=== PATIENT | male | born 1945 | race Caucasian/White ===

== ENCOUNTER 2016-08-02 06:12 | Inpatient (IN) | payer MEDICARE, BC ==
--- NOTE | 2016-07-24 02:34 | HP ---
HISTORY AND PHYSICAL: DATE OF ADMISSION/SURGERY: 08/02/16 PROCEDURE: Right total knee replacement. CHIEF COMPLAINT: Right knee pain. HISTORY OF PRESENT ILLNESS: The patient is a very pleasant 70-year-old male, who has a longstanding history of severe osteoarthritis of the right knee. He presents today for a history and physical examination prior to undergoing a right total knee replacement. In brief, the patient has failed conservative measures such as injections and NSAIDs and feels that this is disrupting his quality of life. He has elected to undergo right total knee replacement. PAST MEDICAL HISTORY: 1. Bladder cancer. 2. Prostate cancer. 3. Osteoarthritis, generalized. 4. Obstructive sleep apnea. 5. Diabetes type 2. 6. Hypertension. 7. Elevated cholesterol. 8. GERD. 9. Nephrolithiasis. PAST SURGICAL HISTORY: 1. Bladder surgery x4. 2. Prostatectomy. 3. Open right knee meniscectomy. 4. Tonsillectomy. 5. Appendectomy. MEDICATIONS: 1. Aspirin 81 mg 1 tablet by mouth daily. 2. Multivitamin 1 tablet daily. 3. Aleve 220 mg 2 tablets by mouth twice daily as needed. 4. Omeprazole 20 mg 1 tablet by mouth. 5. Lotrel 10/40 mg. 6. Simvastatin 40 mg 1 tablet by mouth q.h.s. 7. Metformin 100 mg 1 tablet by mouth twice daily. 8. Atenolol/chlorthalidone 100/25 mg 1 tablet by mouth daily. 9. Tradjenta 5 mg 1 tablet by mouth daily. ALLERGIES: No known drug allergies. FAMILY MEDICAL HISTORY: Positive for heart trouble, diabetes and cancer. SOCIAL HISTORY: The patient is and resides in [place]. The patient is a former smoker, stopped approximately 30 years ago. No alcohol use. REVIEW OF SYSTEMS: General: Negative for fevers, chills, or night sweats. No difficulty with anesthesia. HEENT: Negative for headache, lightheadedness, or syncopal episodes. Integument: Negative for abrasions, lesions, or open wounds. Cardiothoracic: Negative for chest pain, palpitations. Positive for hypertension, positive for minimal bilateral edema. Pulmonary: Negative for shortness of breath with exertion, chronic cough. Positive for COPD. GI: Negative for nausea, vomiting, constipation, diarrhea. Positive for GERD. : Negative for nocturia, urinary frequency or urgency. No history of UTIs. Positive incontinence after prostate surgery. Musculoskeletal: Positive for intermittent back pain, positive for bilateral knee pain. Neuro: Positive for carpal tunnel, paresthesias of the left hand. No seizure, stroke, or epilepsy. Endocrine: Positive for diabetes. Negative for thyroid disease. Hematologic : Negative for easy bruising or anemia. No history of DVT or PE. Infectious Disease: Negative for MRSA, hepatitis C or HIV. PHYSICAL EXAMINATION GENERAL: Well appearing, in no acute distress. Alert and oriented gentleman appearing stated age. VITAL SIGNS: Height 71 inches, weight 300 pounds. Pulse 82, blood pressure 158 /79, temperature 97.4. BMI 41.8. HEENT: Normocephalic, atraumatic. EOMI. NECK: Supple. PULMONARY: Clear to auscultation bilaterally. No crackles, rhonchi, or wheezes. CARDIOVASCULAR: Regular rate and rhythm. No murmurs, gallops, or rubs. Mild edema, bilateral lower extremities. ABDOMEN: Soft, nontender, and nondistended. Normoactive bowel sounds. Obese. NEUROLOGIC: Alert and oriented x3. Cranial nerves grossly intact. Sensation intact to light touch in bilateral lower extremities. MUSCULOSKELETAL: No knee effusion on the right knee. Dorsalis pedis pulses 2+ bilaterally. Right posterior tibial pulse 1+. Negative Robe's sign bilaterally. Range of motion of right knee 0-120 degrees. DIAGNOSTIC STUDIES: Last x-rays up to date, taken 05/06/16. IMPRESSION: The patient is a very pleasant 70-year-old gentleman, who has elected to undergo a right total knee replacement. He has not had previous use of narcotics. Therefore, his medications were not prescribed for him. The procedure was reviewed in depth and the patient voiced full understanding. He signed the risks and complications, surgical sheet. He will be seen at [facility]'s today for further testing. He was cleared by his primary care doctor, Dr. Tilley , on 07/13/16. RUI CARRION [id number]/[facility] #: [id number] MTDD
[~2016-08-02 06:12] MED LIST: Buffered Lidocaine 1% SYRIN* 3 ML/SYR SYRINGE INTRADERM ONE; Dexamethasone IV* 4 MG/ML 1 ML (4 MG) IV SLOW PU ONE; Dexamethasone IV* 4 MG/ML 1 ML (4 MG) ONE; Famotidine IV* 10 MG/ML 2 ML (20 mg) IV ONE; Famotidine IV* 10 MG/ML 2 ML (20 mg) ONE
[2016-08-02] MEDS ORDERED: ceFAZolin 2 GM PREMIX(*) 2 GM/50 ML BAG IVPB ONE (06:13)
[2016-08-02] MEDS ORDERED: Morphine PF AMP (0.5MG/ML)* 5 MG/10 ML AMP ONE (06:49)
[2016-08-02] MEDS ORDERED: HYDROmorphone* 1 MG/ML 1 ML SYR ONE ×3 (06:49→09:26)
[2016-08-02] MEDS ORDERED: fentaNYL* 50 MCG/ML 2 ML VIAL (100 MCG VIAL) ONE ×3 (06:49→09:41)
[2016-08-02] MEDS ORDERED: Midazolam* 1 MG/ML 5 ML VIAL (5 MG) ONE (06:49)
[2016-08-02] MEDS ORDERED: Dexmedetomidine* 200 MCG/2 ML 2 ML VIAL ONE (07:03)
[2016-08-02] MEDS ORDERED: Bupivacaine 0.5% SDV PF* 30 ML VIAL ONE (07:04)
[2016-08-02] MEDS ORDERED: Propofol* 10 MG/ML 20 ML BTL IV PUSH ONE ×2 (07:11→09:04)
[2016-08-02] MEDS ORDERED: DiMENhydriNATE IV* 50 MG/ML VIAL IV PUSH PRN ×2 (07:16→09:16)
[2016-08-02] MEDS ORDERED: Ondansetron INJ* 2 MG/ML VIAL IV PRN ×2 (07:16→09:16)
[2016-08-02] MEDS ORDERED: PROCHLORPERAZINE INJ 5 MG/ML 2 ML VIAL IV PRN ×2 (07:16→09:16)
[2016-08-02] MEDS ORDERED: fentaNYL* 50 MCG/ML 2 ML VIAL (100 MCG VIAL) IV PRN (07:16)
[2016-08-02] MEDS ORDERED: Nalbuphine* 20 MG/ML 1 ML VIAL IV PRN (09:16)
[2016-08-02] MEDS ORDERED: diPHENhydraMINE IV* 50 MG/ML 1 ml VIAL (BENADRYL) IV PRN (09:16)
[2016-08-02] MEDS ORDERED: Naloxone* 0.4 MG/ML 1 ML VIAL IV PRN (09:16)
[2016-08-02] MEDS ORDERED: oxyCODONE/Acetamin 5/325 MG* TAB PO PRN (09:16)
[2016-08-02] MEDS ORDERED: LACTULOSE* 30 ML UDC PO PRN (10:23)
[2016-08-02] MEDS ORDERED: Polyethylene Glycol 3350* 17 GM PACKET PO PRN (10:23)
[2016-08-02] MEDS ORDERED: Bisacodyl SUPP* 10 MG SUPP PR PRN (10:23)
[2016-08-02] MEDS ORDERED: Dextrose 50% Syringe 50 ML* 25 GM/50 ML SYRINGE IV PUSH PRN (11:12)
--- NOTE | 2016-08-02 11:26 | RAD ---
HISTORY: Status post right knee arthroplasty COMPARISONS: None VIEWS: 2, Frontal and lateral views of the right knee FINDINGS: BONE DENSITY: Normal. BONES: The patient is status post right knee arthroplasty. There is no hardware failure or osteolysis. JOINTS: The patient is status post right knee arthroplasty ALIGNMENT: There is no dislocation. SOFT TISSUES: There is post surgical change to the soft tissue OTHER FINDINGS: None. IMPRESSION: STATUS POST RIGHT KNEE ARTHROPLASTY
[2016-08-02] MEDS: D5W 1/2 NS 1000 ML BAG* 1,000 ML IV SCH ×2 (12:48→23:01)
[2016-08-02] MEDS: Insulin LISPRO* 1 UNITS UNIT SUBCUT SCH ×2 (13:40→17:31)
--- NOTE | 2016-08-02 15:37 | CONS ---
CONSULTATION REPORT: DATE OF CONSULT: 08/02/16 REQUESTING PHYSICIAN FOR CONSULT: Dr. Sampson. MY ATTENDING PHYSICIAN WHILE IN THE HOSPITAL: Dr. Leesa Schwab (report dictated by Que Tadeo NP) REASON FOR MEDICAL CONSULT: Medical management of comorbid medical conditions. HISTORY OF PRESENT ILLNESS: I refer you to Dr. Sampson's H and P for further details. In short, Mr. Hernadez is a 70-year-old male patient that comes to the orthopedic services today after he was being followed closely in the outpatient setting for severe osteoarthritis of his right knee failing conservative therapy, it got to the point where the right total knee options were explored and the patient elected to proceed with a right total knee replacement. He underwent the procedure today. He carries a history of bladder cancer, prostate cancer, MIRI, diabetes, hypertension, hyperlipidemia, GERD, and history of bladder calcifications, and because of his medical problems, we were asked to evaluate in consult. The patient was evaluated in the postoperative setting. He does state that he feels a little drowsy. He says he feels a little lightheaded. He denies feeling though likely he is going to pass out. Denies any chest pain or shortness of breath. He denies having any abdominal pain. States he does not feel nauseous. He says he has no feeling in his lower extremities at this point. He did receive again a spinal. He says otherwise, he feels well and he says he is not having any pain, but because of his medical complexity, we were asked to evaluate in consult. PAST MEDICAL HISTORY: Significant for: 1. Bladder cancer. 2. Prostate cancer. 3. Osteoarthritis. 4. MIRI. 5. Diabetes. 6. Hypertension. 7. Hyperlipidemia. 8. GERD. 9. Bladder calcifications. PAST SURGICAL HISTORY: 1. He has had bladder surgeries, several. 2. He has had a prostatectomy. 3. Right knee arthroscopy. 4. Tonsillectomy. 5. Appendectomy. MEDICATIONS: Home meds according to the preoperative list include: 1. Naproxen 220 mg p.o. daily. 2. Multivitamin 1 tablet daily. 3. Aspirin 81 mg daily. 4. Lotrel 1 capsule p.o. q.a.m. 5. Glyburide/metformin 1 tablet p.o. b.i.d. 6. Atenolol/chlorthalidone 1 tablet p.o. q.a.m. 7. Simvastatin 40 mg daily. 8. Omeprazole 20 mg daily. 9. Tradjenta 5 mg p.o. daily. ALLERGIES TO MEDICATIONS: Include no known drug allergies. FAMILY HISTORY: His mother had a history of kidney disease. Father had a history of hypertension. Both are . SOCIAL HISTORY: He is a former smoker, he quit well over 30 years ago. He does not drink alcohol. Surrogate decision maker is his . He does have children. REVIEW OF SYSTEMS: There is no documented fever. He denied having any significant weight change. There was no double vision. There is no ear discharge. He denies any having any rhinorrhea. There is no sore throat, no thyroid enlargement. Denies having any chest pain. There is no orthopnea, no nocturnal dyspnea. There is no abdominal pain. No nausea, no vomiting. No dysuria, no frequency. No seizure, no loss of consciousness. No pruritus and no skin ulceration. Review of 14 systems completed, all others negative. PHYSICAL EXAM: Reveals vital signs of blood pressure 112/60, pulse 67, respirations 20, O2 sat 95% on 4 L, and temperature 96.8. General: At this time, Mr. Hernadez is a 70-year-old male patient. He is morbidly obese. He is sitting in the PACU bed, he does not appear to be in any acute distress. HEENT : Head is atraumatic and normocephalic. Eyes: EOMs intact, sclerae anicteric , not pale. Throat: Oral mucosa appears to be moist. No oropharyngeal erythema. Neck: Supple. Heart sounds S1 and S2. Regular rate and rhythm. No murmurs, rubs, or gallops. Lungs: Clear to auscultation bilaterally. No wheezes, rales, or rhonchi. Abdomen: Soft, flat, and nontender. Bowel sounds hypoactive. Extremities: Distal CSM checks were intact at bilateral lower extremities. There was no peripheral edema noted. He cannot move the lower extremities at this point. Upper extremities, he had 5/5 strength. Neurologically, he is awake, alert, and oriented x3. He is a little drowsy, but his speech is clear. He had no gross focal deficits. His tongue is midline. His skin is intact with the exception in the right knee, he does have an incision which is covered with an Alexander dressing and is clean, dry, and intact. DIAGNOSTIC STUDIES/LAB DATA: These are preop labs, revealed INR of 0.90, PTT of 25. His calcium was 9.6, albumin 4.2. AST 16, ALT 19. Sodium 135, potassium 4.4, chloride of 97, glucose 156, creatinine of 1.28. Urine obtained preop was negative. WBC of 8.3, RBC of 5.37, hemoglobin 11.3, hematocrit 36, platelet count 315. Hemoglobin A1c was 6.7. Preop chest x-ray showed no active cardiopulmonary disease. EKG showed a normal sinus rhythm with a PAC. He had a rate of 75. No ST elevation or T-wave inversions. Old medical records were reviewed. ASSESSMENT AND PLAN: Mr. Hernadez is a 70-year-old male patient coming in to the orthopedic services today for an elective total knee replacement. The hospitalist service was asked to evaluate in consult to help manage his medical problems. Our recommendations at this point are: 1. Status post right total knee replacement. I will defer the management to Dr. Sampson and his team. 2. History of bladder cancer and prostate cancer. Not active issues currently. Can follow with his primary. 3. Osteoarthritis. Again, he can follow with his primary. 4. Obstructive sleep apnea. I would recommend 24-hour continuous pulse ox monitoring postoperatively and then continue with CPAP. 5. Diabetes. He will be on a lispro sliding scale. 6. Hypertension. We will hold his antihypertensives for the time being with the exception of his beta adilene. 7. Hyperlipidemia. I will continue his statin therapy. 8. Gastroesophageal reflux disease. Continue PPI therapy. 9. DVT prophylaxis. Per the primary team. 10. Code status. Full code. 11. Fluids, electrolytes, and nutrition. He can have a consistent carb diet. TIME SPENT: On the consult was approximately 60 minutes, greater than half the time was spent [id number] with the patient obtaining my history and physical; the other half the time was spent going over the plan of care with the patient and implementing the plan of care. I did discuss the plan of care with my attending, Dr. Schwab; she is in agreement. QUE TADEO NP CC: Dr. Sampson; Dr. Tilley * [id number]/[facility] #: [id number] [facility] SYSTEMByron
[2016-08-02] MEDS: ceFAZolin 1 GM in Dextrose (*) 1 GM/50 ML BAG IVPB SCH (16:04)
[2016-08-02] MEDS ORDERED: Warfarin TAB(*) 10 MG PO ONE (17:00)
[2016-08-02] MEDS: Atorvastatin* 20 MG TAB PO SCH (17:31)
[2016-08-02] MEDS ORDERED: Linagliptin (NF) 5 MG TAB PO SCH (18:00)
[2016-08-02] MEDS: Docusate CAP* 100 MG PO SCH (20:41)
[2016-08-02] MEDS: Magnesium Hydroxide LIQ* 30 ML UDC PO SCH (20:41)
[2016-08-03] MEDS ORDERED: diPHENhydraMINE IV* 50 MG/ML 1 ml VIAL (BENADRYL) IV PRN
[2016-08-03] MEDS ORDERED: Morphine INJ* 4 MG/ML 1 ML SYRINGE IV PRN
[2016-08-03] MEDS ORDERED: oxyCODONE/Acetamin 5/325 MG* TAB PO PRN
[2016-08-03] MEDS ORDERED: Ondansetron TAB* 4 MG PO PRN
[2016-08-03] MEDS ORDERED: Acetaminophen TAB* 325 MG PO PRN
[2016-08-03] MEDS ORDERED: Ondansetron INJ* 2 MG/ML VIAL IV PRN
[2016-08-03] MEDS ORDERED: oxyCODONE TAB* 5 MG TAB PO PRN
[2016-08-03] MEDS: ceFAZolin 1 GM in Dextrose (*) 1 GM/50 ML BAG IVPB SCH ×2 (00:05→08:34)
--- NOTE | 2016-08-03 01:38 | OP ---
DATE OF OPERATION: 08/02/16 - ROOM #348 DATE OF : 41 ATTENDING: Cesar Sampson MD SOLID WASTE TECHNICIAN: RUI Hendrix ANESTHESIOLOGIST: Royer Zurita MD ANESTHESIA: Spinal/regional/sedation. PRE-OP DIAGNOSIS: Osteoarthritis, right knee. POST-OP DIAGNOSIS: Osteoarthritis, right knee. OPERATIVE PROCEDURE: Right total knee arthroplasty. ESTIMATED BLOOD LOSS: Less than 100 cc. COMPLICATIONS: None. HARDWARE: Shant Persona #7 femur, F tibia, 12-mm polyethylene spacer, 35-mm all- polyethylene patellar button. INDICATIONS: Mr. eHrnadez is a 70-year-old male who has been having more and more troubles with bilateral knee pain. He has a history of an open meniscectomy years ago on the right knee and currently is completely bone-on- bone and on the femoral component of the right knee with obvious collapse and end-stage arthritic changes. I discussed with him that a total knee arthroplasty should work well to decrease his pain and improve his function. Risks of surgery such as infection, scar formation, stiffness, DVT, pulmonary embolism, hardware failure, and very specific skin issues because of his old incision were discussed and he wish to proceed. He had been declared medically optimized prior to surgery. DESCRIPTION OF PROCEDURE: The patient was brought to the OR after a block was placed in the holding area. Spinal anaesthesia was introduced. Song catheter was placed and tourniquet was placed over the proximal right thigh. Total tourniquet time would be between 70 and 75 minutes. Right knee was prepped and then draped. RUI Hendrix, was present for all portions of the surgery including positioning, exposure, placement of the components, and her aid was absolutely necessary throughout the procedure, otherwise it could not have been done. Right knee was prepped and then draped. Esmarch was used to exsanguinate the leg and midline incision was made. This was leaving a little bit of skin ridge as his open medial incision started towards the anteromedial aspect of the joint line and then came medial and proximal, so that only at the very distal portion that this come close to my incision. Incision was carried down to the skin and subcutaneous tissues. Small bleeders encountered were ligated using electrocautery. Full thickness flaps were elevated and a sharp parapatellar arthrotomy was made. Quite a bit of clear yellowish joint fluid was encountered. Soft tissues were sharply elevated from the medial side of the tibia and the fat pad were sharply excised. Soft tissues were cleaned from the rim of the patella and the patella measured 27 mm in thickness, a nice 10 mm cut was taken. Patella was then easily subluxated laterally and the knee was flexed up. Step drill was used to open the femoral canal and the intramedullary guide was placed. Guide was adjusted until it was parallel with the epicondyles and then pinned into place. Distal femoral cutting guide was then pinned into place. Intramedullary guide was removed and the distal femoral cut was taken and it appeared a nice cut was obtained. Femur was then sized and he sat nicely for a 7. Holes were drilled and cutting block was placed. Superior hole was then drilled and it appeared that I would not notch the femur. Anterior cuts were taken and this was confirmed. Posterior and chamfer cuts were also done. Attention was turned to the proximal tibia. Step drill was used to open the tibial canal and the intramedullary guide was placed. Outrigger was placed and adjusted until it appeared it would take 2 mm from the very worn medial side. It will be seen where the bone had worn downwards and inwards and then medial side. I thought perhaps I would need a little bit more than a 10 spacer and I thought that would be acceptable. Alignment guide was checked to make sure that it is nicely parallel with the anterior spine of the tibia and a proximal tibial cut was then taken. Spacer block was then placed and the tibial cut was perfect to the shaft of the tibia. On the femoral side, I had a little bit of wobble and it could be seen where I should take a little bit more on the medial femoral condyle. This was taken free hand and the chamfer cuts were retaken. Now with the 12 block, he locked out nicely into full extension, flexed easily, and his alignment appeared perfect. Tibia was sized and he sat nicely for an F. Proximal tibia was drilled and then punched. Femoral trial was also placed and then notch cut was taken. He was trialed with a 10 and had a little bit applied to varus and valgus stress and with a 12, he seemed to sit really quite nicely. He came out nicely in the full extension and was nice and stable and easily flexed. Patellar tracking was good even without a component. Patella was sized and the 35 sat very nicely. Holes were drilled and a trial was snapped into place. With the trial in place, patellar tracking was perfect. Trial instrumentation was removed. The knee was copiously pulse lavaged. Cement was being prepared. Tibia followed by femur and patella were all cemented into place. Excess cement was removed and cement was allowed to harden. Once the cement had hardened, he was trialed again with a 10 and then a 12 and then he had the same looseness with the 10, so I thought the 12 would be perfect. Trial poly was removed and he was again copiously pulse lavaged and searched for any excess cement. 12 polyethylene was then snapped into place. He had very good motion and stability. He was then copiously pulse lavaged and the parapatellar arthrotomy was repaired using interrupted #1 Vicryl sutures. Tourniquet was let down and a small bleeder right at the inferior portion was tied off using 2-0 Vicryl. The remainder of the pulse was then used and subcutaneous tissues were reapproximated using 2-0 Vicryl. Skin was closed using liam. Sterile dressing and Cryo/Cuff were applied in the OR. The patient was then awaked and stable on transfer to the recovery room. [id number]/[facility] #: [id number] NENA
[2016-08-03] MEDS: oxyCODONE/Acetamin 5/325 MG* TAB PO PRN ×5 (03:58→20:48)
[2016-08-03 05:59] LABS: Hematocrit 27 % (42-52); Hemoglobin 8.5 g/dl (14.0-18.0)
[2016-08-03 06:06] LABS: Comments Flag Yes
[2016-08-03 06:27] LABS: Calcium 8.6 mg/dL (8.6-10.3); EGFR African American 78.8 (>60); EGFR Non-African American 61.3 (>60); Potassium 3.8 mmol/L (3.5-5.0)
[2016-08-03] MEDS: Docusate CAP* 100 MG PO SCH ×2 (08:33→20:44)
[2016-08-03] MEDS: Omeprazole CAP* 20 MG PO SCH (08:33)
[2016-08-03] MEDS: Vitamin THERAPEUTIC TAB PO SCH (08:33)
[2016-08-03] MEDS: Atenolol TAB* 50 MG PO SCH (08:33)
[2016-08-03] MEDS: Magnesium Hydroxide LIQ* 30 ML UDC PO SCH ×2 (08:35→20:44)
[2016-08-03] MEDS: Insulin LISPRO* 1 UNITS UNIT SUBCUT SCH ×3 (08:36→17:01)
[2016-08-03] MEDS ORDERED: CHLORTHALIDONE PO SCH (09:00)
[2016-08-03] MEDS ORDERED: amLODIPine/Benazepril 10/20(NF) CAP PO SCH (09:00)
[2016-08-03] MEDS ORDERED: ATENOLOL PO SCH (09:00)
--- NOTE | 2016-08-03 09:19 | PN ---
Progress Note - Progress Note SOAP: Subjective: []Patient seen OOB in chair. Doing very well, little pain in right knee reported. Denies SOB, CP or dizziness. Objective: [] Vital Signs Temp 97.6 F 08/03/16 07:25 Pulse 73 08/03/16 07:25 Resp 18 08/03/16 08:34 BP 138/66 08/03/16 07:25 Pulse Ox 96 08/03/16 07:25 Intake & Output 08/02/16 08/03/16 08/03/16 18:59 06:59 18:59 Intake Total 4000 2130 320 Output Total 1050 1475 Balance 2950 655 320 Intake: IV Fluids 2200 1030 ABX - CEFAZOLIN 50 D5W 1/2 NS 980 LR 2200 Oral 1800 1100 320 Output: Song 950 1475 Estimated Blood Loss 100 Laboratory Results - last 24 hr 08/02/16 08/02/16 08/03/16 10:27 17:05 05:29 Hgb 8.5 L Hct 27 L INR (Anticoag Therapy) Sodium Potassium Chloride Carbon Dioxide Anion Gap BUN Creatinine Est GFR ( Amer) Est GFR (Non-Af Amer) BUN/Creatinine Ratio Glucose POC Glucose (mg/dL) 202 H 232 H Calcium 08/03/16 08/03/16 08/03/16 05:29 05:29 07:19 Hgb Hct INR (Anticoag Therapy) 1.12 H Sodium 131 L Potassium 3.8 Chloride 95 L Carbon Dioxide 28 Anion Gap 8 BUN 14 Creatinine 1.17 Est GFR ( Amer) 78.8 Est GFR (Non-Af Amer) 61.3 BUN/Creatinine Ratio 12.0 Glucose 162 H POC Glucose (mg/dL) 173 H Calcium 8.6 Right knee JUDITH dry and intact calf non tender and soft +DF/PF right ankle sensation intact distally Assessment: []s/p Right total knee arthroplasty POD #1 Plan: []PT/OT WBAT right LE Coumadin with Heparin bridge, 8 mg today watch H+H Home w VNS
[2016-08-03] MEDS: Heparin VIAL(*) 5000 UNITS/ML VIAL (FIVE THOUSAND) SUBCUT SCH ×3 (10:23→22:23)
[2016-08-03] MEDS ORDERED: Warfarin TAB(*) 4 MG PO ONE (17:00)
[2016-08-03] MEDS: Atorvastatin* 20 MG TAB PO SCH (17:35)
--- NOTE | 2016-08-03 23:28 | PN ---
Subjective Date of Service: 08/03/16 Interval History: Patient feels well without complaints. Objective Active Medications: Acetaminophen (Tylenol Tab*) 650 mg PO Q4H PRN PRN Reason: pain, fever Atenolol (Tenormin Tab*) 100 mg PO DAILY [facility] Last Admin: 08/03/16 08:33 Dose: 100 mg Atorvastatin Calcium (Lipitor*) 20 mg PO QPM [facility] Last Admin: 08/03/16 17:35 Dose: 20 mg Bisacodyl (Dulcolax Supp*) 10 mg [place] DAILY PRN PRN Reason: constipation Dextrose (D50w Syringe 50 Ml*) 12.5 gm IV PUSH .FOR FS < 60 - SS PRN PRN Reason: FS < 60 Diphenhydramine HCl (Benadryl Iv*) 12.5 mg IV Q6H PRN PRN Reason: PRURITIS Docusate Sodium (Colace Cap*) 100 mg PO BID [facility] Last Admin: 08/03/16 20:44 Dose: 100 mg Heparin Sodium (Porcine) (Heparin Vial(*)) 5,000 units SUBCUT Q8HR [facility] Last Admin: 08/03/16 22:23 Dose: 5,000 units Dextrose/Sodium Chloride (D5w 1/2 Ns 1000 Ml Bag*) 1,000 mls @ 100 mls/hr IV PER RATE [facility] Last Admin: 08/02/16 23:01 Dose: 100 mls/hr Insulin Human Lispro (Humalog*) 0 units SUBCUT AC [facility] PRN Reason: Protocol Last Admin: 08/03/16 17:01 Dose: 6 units Lactulose (Lactulose*) 30 ml PO Q6H PRN PRN Reason: constipation Magnesium Hydroxide (Milk Of Magnesia Liq*) 30 ml PO BID [facility] Last Admin: 08/03/16 20:44 Dose: 30 ml Morphine Sulfate (Morphine Inj (Syringe)*) 4 mg IV Q2H PRN PRN Reason: PAIN Multivitamins (Theragran Tab*) 1 tab PO DAILY [facility] Last Admin: 08/03/16 08:33 Dose: 1 tab Omeprazole (Prilosec Cap*) 20 mg PO DAILY@0730 [facility] Last Admin: 08/03/16 08:33 Dose: 20 mg Ondansetron HCl (Zofran Inj*) 4 mg IV Q6H PRN PRN Reason: nausea Ondansetron HCl (Zofran Tab*) 4 mg PO Q6H PRN PRN Reason: NAUSEA Oxycodone HCl (Roxycodone Tab*) 10 mg PO Q4H PRN PRN Reason: PAIN - SEVERE Oxycodone/Acetaminophen (Percocet 5/325 Tab*) 1 tab PO Q4H PRN PRN Reason: PAIN - MILD Oxycodone/Acetaminophen (Percocet 5/325 Tab*) 2 tab PO Q4H PRN PRN Reason: PAIN - MODERATE Last Admin: 08/03/16 20:48 Dose: 2 tab Pharmacy Profile Note (Coumadin Daily Reminder*) 0 note FOLLOW UP [address]00 [address] Last Admin: 08/03/16 17:04 Dose: 1 note Polyethylene Glycol/Electrolytes (Miralax*) 17 gm PO DAILY PRN PRN Reason: Constipation Vital Signs 08/02/16 08/03/16 08/03/16 23:58 00:00 03:50 Temperature 98.1 F 98.2 F Pulse Rate 82 77 Respiratory 16 16 Rate Blood Pressure 119/89 135/65 (mmHg) O2 Sat by Pulse 96 99 95 Oximetry 08/03/16 08/03/16 08/03/16 03:58 05:58 07:22 Temperature Pulse Rate Respiratory 16 16 20 Rate Blood Pressure (mmHg) O2 Sat by Pulse 96 Oximetry 08/03/16 08/03/16 08/03/16 07:25 08:34 10:34 Temperature 97.6 F Pulse Rate 73 Respiratory 18 18 20 Rate Blood Pressure 138/66 (mmHg) O2 Sat by Pulse 96 Oximetry 08/03/16 08/03/16 08/03/16 11:25 12:40 14:40 Temperature 98.0 F Pulse Rate 78 Respiratory 16 18 16 Rate Blood Pressure 135/66 (mmHg) O2 Sat by Pulse 95 Oximetry 08/03/16 08/03/16 08/03/16 15:33 16:00 17:01 Temperature 98.1 F Pulse Rate 81 Respiratory 18 18 Rate Blood Pressure 143/61 (mmHg) O2 Sat by Pulse 96 96 Oximetry 08/03/16 08/03/16 08/03/16 19:37 20:48 22:48 Temperature 98.0 F Pulse Rate 78 Respiratory 15 18 16 Rate Blood Pressure 136/66 (mmHg) O2 Sat by Pulse 95 Oximetry Oxygen Devices in Use Now: None Appearance: Overweight gentleman sitting up in bed in NAD Eyes: No Scleral Icterus Ears/Nose/Mouth/Throat: Clear Oropharnyx Neck: Trachea Midline Respiratory: Clear to Auscultation Cardiovascular: - - S1S2 franck Abdominal: NL Sounds; No Tenderness; No Distention, No Hepatosplenomegaly Lymphatic: No Cervical Adenopathy Extremities: No Clubbing, Cyanosis Skin: No Rash or Ulcers Neurological: Alert and Oriented x 3 Result Diagrams: 08/03/16 05:29 08/03/16 05:29 Assess/Plan/Problems-Billing Assessment: 70 year old gentleman here for Total right knee replacement and medical issues we have been asked to help manage. - Patient Problems (1) Status post total right knee replacement Current Visit: Yes Status: Acute Code(s): Z96.651 - PRESENCE OF RIGHT ARTIFICIAL KNEE JOINT SNOMED Code(s): 5260167581248 Comment: Doing well. Management as per ortho (2) Hypertension Current Visit: Yes Status: Acute Code(s): I10 - ESSENTIAL (PRIMARY) HYPERTENSION SNOMED Code(s): 76614824 Comment: Adequate control. Continue current regimen. (3) Osteoarthritis Current Visit: Yes Status: Acute Code(s): M19.90 - UNSPECIFIED OSTEOARTHRITIS, UNSPECIFIED SITE SNOMED Code(s): 059861837 Comment: Stable. Monitor. (4) MIRI (obstructive sleep apnea) Current Visit: Yes Status: Acute Code(s): G47.33 - OBSTRUCTIVE SLEEP APNEA ( ADULT) (PEDIATRIC) SNOMED Code(s): 07958806 Comment: need to review overnight sleep study (5) Diabetes mellitus Current Visit: Yes Status: Acute Code(s): E11.9 - TYPE 2 DIABETES MELLITUS WITHOUT COMPLICATIONS SNOMED Code(s): 27649896 Comment: Borderline control. For now continue FS with SSI (6) Hyperlipidemia Current Visit: Yes Status: Acute Code(s): E78.5 - HYPERLIPIDEMIA, UNSPECIFIED SNOMED Code(s): 24051080 Comment: Stable. Continue Lipitor. (7) GERD (gastroesophageal reflux disease) Current Visit: Yes Status: Acute Code(s): K21.9 - GASTRO-ESOPHAGEAL REFLUX DISEASE WITHOUT ESOPHAGITIS SNOMED Code(s): 073279371 Comment: Continue PPI.
[2016-08-04] MEDS: oxyCODONE/Acetamin 5/325 MG* TAB PO PRN ×5 (03:39→20:58)
[2016-08-04] MEDS: Heparin VIAL(*) 5000 UNITS/ML VIAL (FIVE THOUSAND) SUBCUT SCH (05:38)
[2016-08-04 06:43] LABS: Hematocrit 27 % (42-52); Hemoglobin 8.5 g/dl (14.0-18.0)
[2016-08-04 06:44] LABS: Comments Flag Yes
[2016-08-04] MEDS: Docusate CAP* 100 MG PO SCH ×2 (08:24→21:04)
[2016-08-04] MEDS: Atenolol TAB* 50 MG PO SCH (08:24)
[2016-08-04] MEDS: Vitamin THERAPEUTIC TAB PO SCH (08:25)
[2016-08-04] MEDS: Omeprazole CAP* 20 MG PO SCH (08:25)
[2016-08-04] MEDS: Insulin LISPRO* 1 UNITS UNIT SUBCUT SCH ×3 (08:25→16:59)
[2016-08-04] MEDS: Magnesium Hydroxide LIQ* 30 ML UDC PO SCH ×2 (09:44→21:04)
[2016-08-04] MEDS: Atorvastatin* 20 MG TAB PO SCH (16:46)
[2016-08-04] MEDS ORDERED: Warfarin TAB(*) 2.5 MG PO ONE (17:00)
--- NOTE | 2016-08-04 19:31 | PN ---
Subjective Date of Service: 08/04/16 Interval History: Patient says knee a little tighter today but otherwise no complaints. Objective Active Medications: Acetaminophen (Tylenol Tab*) 650 mg PO Q4H PRN PRN Reason: pain, fever Atenolol (Tenormin Tab*) 100 mg PO DAILY [facility] Last Admin: 08/04/16 08:24 Dose: 100 mg Atorvastatin Calcium (Lipitor*) 20 mg PO QPM [facility] Last Admin: 08/04/16 16:46 Dose: 20 mg Bisacodyl (Dulcolax Supp*) 10 mg [place] DAILY PRN PRN Reason: constipation Dextrose (D50w Syringe 50 Ml*) 12.5 gm IV PUSH .FOR FS < 60 - SS PRN PRN Reason: FS < 60 Diphenhydramine HCl (Benadryl Iv*) 12.5 mg IV Q6H PRN PRN Reason: PRURITIS Docusate Sodium (Colace Cap*) 100 mg PO BID [facility] Last Admin: 08/04/16 08:24 Dose: 100 mg Dextrose/Sodium Chloride (D5w 1/2 Ns 1000 Ml Bag*) 1,000 mls @ 100 mls/hr IV PER RATE [facility] Last Admin: 08/02/16 23:01 Dose: 100 mls/hr Insulin Human Lispro (Humalog*) 0 units SUBCUT AC [facility] PRN Reason: Protocol Last Admin: 08/04/16 16:59 Dose: 3 units Lactulose (Lactulose*) 30 ml PO Q6H PRN PRN Reason: constipation Last Admin: 08/04/16 09:44 Dose: 30 ml Magnesium Hydroxide (Milk Of Magnesia Liq*) 30 ml PO BID [facility] Last Admin: 08/04/16 09:44 Dose: 30 ml Morphine Sulfate (Morphine Inj (Syringe)*) 4 mg IV Q2H PRN PRN Reason: PAIN Multivitamins (Theragran Tab*) 1 tab PO DAILY [facility] Last Admin: 08/04/16 08:25 Dose: 1 tab Omeprazole (Prilosec Cap*) 20 mg PO DAILY@0730 [facility] Last Admin: 08/04/16 08:25 Dose: 20 mg Ondansetron HCl (Zofran Inj*) 4 mg IV Q6H PRN PRN Reason: nausea Ondansetron HCl (Zofran Tab*) 4 mg PO Q6H PRN PRN Reason: NAUSEA Oxycodone HCl (Roxycodone Tab*) 10 mg PO Q4H PRN PRN Reason: PAIN - SEVERE Oxycodone/Acetaminophen (Percocet 5/325 Tab*) 1 tab PO Q4H PRN PRN Reason: PAIN - MILD Oxycodone/Acetaminophen (Percocet 5/325 Tab*) 2 tab PO Q4H PRN PRN Reason: PAIN - MODERATE Last Admin: 08/04/16 16:46 Dose: 2 tab Pharmacy Profile Note (Coumadin Daily Reminder*) 0 note FOLLOW UP [address] Last Admin: 08/04/16 16:47 Dose: 1 note Polyethylene Glycol/Electrolytes (Miralax*) 17 gm PO DAILY PRN PRN Reason: Constipation Vital Signs 08/03/16 08/03/16 08/03/16 19:37 20:48 22:48 Temperature 98.0 F Pulse Rate 78 Respiratory 15 18 16 Rate Blood Pressure 136/66 (mmHg) O2 Sat by Pulse 95 Oximetry 08/03/16 08/04/16 08/04/16 23:35 03:35 03:39 Temperature 98.6 F 98.4 F Pulse Rate 79 73 Respiratory 16 16 18 Rate Blood Pressure 144/57 155/67 (mmHg) O2 Sat by Pulse 93 96 Oximetry 08/04/16 08/04/16 08/04/16 05:39 07:35 08:00 Temperature 98.2 F Pulse Rate 69 Respiratory 18 17 18 Rate Blood Pressure 150/68 (mmHg) O2 Sat by Pulse 96 96 Oximetry 08/04/16 08/04/16 08/04/16 08:24 10:21 11:12 Temperature 98.8 F Pulse Rate 73 Respiratory 18 18 16 Rate Blood Pressure 153/61 (mmHg) O2 Sat by Pulse 96 Oximetry 08/04/16 08/04/16 08/04/16 12:29 14:29 15:40 Temperature 98.7 F Pulse Rate 76 Respiratory 18 18 15 Rate Blood Pressure 144/65 (mmHg) O2 Sat by Pulse 97 Oximetry 08/04/16 08/04/16 16:00 16:46 Temperature Pulse Rate Respiratory 18 Rate Blood Pressure (mmHg) O2 Sat by Pulse 97 Oximetry Oxygen Devices in Use Now: None Appearance: Overweight gentleman sitting up in his chair in NAD Eyes: No Scleral Icterus Ears/Nose/Mouth/Throat: Mucous Membranes Moist Neck: No Thyroid Enlargement, Masses Respiratory: Clear to Auscultation Cardiovascular: - - S1S2 franck Abdominal: No Hepatosplenomegaly Lymphatic: No Cervical Adenopathy Extremities: No Clubbing, Cyanosis, - - R kneein cooling device Skin: No Rash or Ulcers Neurological: Alert and Oriented x 3 Result Diagrams: 08/04/16 06:30 08/03/16 05:29 Assess/Plan/Problems-Billing Assessment: 70 year old gentleman here for Total right knee replacement and medical issues we have been asked to help manage. - Patient Problems (1) Status post total right knee replacement Current Visit: Yes Status: Acute Code(s): Z96.651 - PRESENCE OF RIGHT ARTIFICIAL KNEE JOINT SNOMED Code(s): 4953837029502 Comment: Doing well. Some stiffness today likely from some inflammation. Management as per ortho (2) Hypertension Current Visit: Yes Status: Acute Code(s): I10 - ESSENTIAL (PRIMARY) HYPERTENSION SNOMED Code(s): 39865569 Comment: Borderline control. For now continue current regimen. (3) Osteoarthritis Current Visit: Yes Status: Acute Code(s): M19.90 - UNSPECIFIED OSTEOARTHRITIS, UNSPECIFIED SITE SNOMED Code(s): 657909225 Comment: Stable. Monitor. (4) MIRI (obstructive sleep apnea) Current Visit: Yes Status: Acute Code(s): G47.33 - OBSTRUCTIVE SLEEP APNEA ( ADULT) (PEDIATRIC) SNOMED Code(s): 11501517 Comment: On CPAP (5) Diabetes mellitus Current Visit: Yes Status: Acute Code(s): E11.9 - TYPE 2 DIABETES MELLITUS WITHOUT COMPLICATIONS SNOMED Code(s): 48964076 Comment: Borderline control. For now continue FS with SSI (6) Hyperlipidemia Current Visit: Yes Status: Acute Code(s): E78.5 - HYPERLIPIDEMIA, UNSPECIFIED SNOMED Code(s): 90949383 Comment: Stable. Continue Lipitor. (7) GERD (gastroesophageal reflux disease) Current Visit: Yes Status: Acute Code(s): K21.9 - GASTRO-ESOPHAGEAL REFLUX DISEASE WITHOUT ESOPHAGITIS SNOMED Code(s): 748082543 Comment: Stable. Continue PPI.
[2016-08-05] MEDS: oxyCODONE/Acetamin 5/325 MG* TAB PO PRN ×3 (03:59→12:28)
[2016-08-05 06:09] LABS: Hematocrit 27 % (42-52); Hemoglobin 8.2 g/dl (14.0-18.0)
[2016-08-05 06:10] LABS: Comments Flag Yes
[2016-08-05] MEDS: Magnesium Hydroxide LIQ* 30 ML UDC PO SCH (07:58)
[2016-08-05] MEDS: Docusate CAP* 100 MG PO SCH (07:58)
[2016-08-05] MEDS: Omeprazole CAP* 20 MG PO SCH (07:58)
[2016-08-05] MEDS: Vitamin THERAPEUTIC TAB PO SCH (07:58)
[2016-08-05] MEDS: Insulin LISPRO* 1 UNITS UNIT SUBCUT SCH ×2 (07:59→11:58)
[2016-08-05] MEDS: Atenolol TAB* 50 MG PO SCH (07:59)
--- NOTE | 2016-08-05 09:52 | PN ---
Progress Note - Progress Note SOAP: Subjective: []Patient seen at bedside. Dressed and ready to go home. Pain well managed. Objective: [] Vital Signs Temp 98.1 F 08/05/16 07:14 Pulse 78 08/05/16 07:14 Resp 18 08/05/16 08:00 BP 144/64 08/05/16 07:14 Pulse Ox 97 08/05/16 08:00 Intake & Output 08/04/16 08/05/16 08/05/16 18:59 06:59 18:59 Intake Total 970 1220 400 Output Total 575 450 Balance 395 770 400 Intake: Oral 970 1220 400 Output: Urine 450 Song 575 Other: Estimated Void Medium Medium Medium # Bowel Movements 2 2 Estimated Stool Amount Medium Medium # Voids 0 5 Laboratory Results - last 24 hr 08/04/16 08/05/16 08/05/16 11:59 05:46 05:46 Hgb 8.2 L Hct 27 L INR (Anticoag Therapy) 1.96 H POC Glucose (mg/dL) 160 H 08/05/16 07:30 Hgb Hct INR (Anticoag Therapy) POC Glucose (mg/dL) 176 H Right knee wound is benign, no drainage calf NT +DF/PF neuro intact Assessment: []s/p RTK arthroplasty POD #3 Plan: []Change dressing before discharge today Continue Coumadin 2mg tonight RX of Coumadin, Colace and Percocet sent to his pharmacy Follow up in 3- [address] Sampson
--- NOTE | 2016-08-05 11:00 | DS ---
DATE OF ADMISSION: 08/02/2016 DATE OF DISCHARGE: 08/05/2016. ATTENDING PROVIDER: Dr. Cesar Sampson. (dictated by RUI Bradley) ADMISSION DIAGNOSIS: Osteoarthritis right knee. DISCHARGE DIAGNOSIS: Osteoarthritis right knee. SURGERY PERFORMED: Right total knee arthroplasty. HOSPITAL COURSE: The patient is a 70-year-old male who is having increasing difficulty with his right knee. The patient had a history of open meniscectomy several years ago on the right knee and developed [id number] osteoarthritic changes in the medial compartment. Due to his end-stage arthritic changes and failed conservative management with injection therapy and ambulatory assistive devices, he elected to proceed with surgical intervention. He was taken to the operating room under the care of Dr. Cesar Sampson for the aforementioned procedure. He tolerated the procedure well and left the operating room in stable condition. Postoperatively, he progressed satisfactorily with his physical therapy and occupational therapy goals. He had no acute postoperative complications. He was managed by the Medical Hospitalist services for his medical comorbidities, including diabetes mellitus. It was felt he was medically and orthopedically stable for discharge to home on the date of 2016. CONDITION ON DISCHARGE: Vital signs stable. He is afebrile. His right knee incision is benign without erythema or drainage. His calf is soft and nontender. His neurovascular status is intact. PLAN: Discharge to home, 08/05/2016. He will continue on Coumadin for his DVT prophylaxis. He was instructed to take 2 mg on August 05, 2 mg on August 06, 2 mg on August 07, and 2 mg on August 08 with a blood draw Tuesday and subsequent dosages from the office to follow. Prescriptions of Coumadin, Percocet 5/325 mg #90 with no refills, and prescription of Colace were all sent to his pharmacy today. The patient will have visiting home nursing services for the blood draw and for staple removal at about 10 to 12 days postoperatively. We recommend a follow- up with Dr. Sampson in roughly three to four weeks in the office. If he notices any increased pain, redness, swelling, drainage, calf pain, calf swelling, fever or chills, the office is to be contacted prior to his scheduled appointment. RUI BRADLEY [id number]/[facility] #: [id number] NENA
[2016-08-05 12:07] VITALS: BP 154/70
== END 2016-08-05 14:30 | disposition home health service (06) | DRG 470 ==
LOC: AA 06:12 → SSU 10:23
PROVIDERS: ADMIT Orthopaedic Surgery; ATTEND Orthopaedic Surgery
PROC: 0SRC0J9 Replacement of Right Knee Joint with Synthetic Substitute, Cemented, Open Approach (ICD-10-PCS; principal; 2016-08-02 07:30)
DX: M17.11 Unilateral primary osteoarthritis, right knee (principal); E11.9 Type 2 diabetes mellitus without complications; J44.9 Chronic obstructive pulmonary disease, unspecified; Z68.41 Body mass index [BMI] 40.0-44.9, adult; M15.9 Polyosteoarthritis, unspecified; G47.33 Obstructive sleep apnea (adult) (pediatric); I10 Essential (primary) hypertension; E78.00 Pure hypercholesterolemia, unspecified; K21.9 Gastro-esophageal reflux disease without esophagitis; G56.02 Carpal tunnel syndrome, left upper limb; R32 Unspecified urinary incontinence; E78.5 Hyperlipidemia, unspecified; E66.01 Morbid (severe) obesity due to excess calories; N32.89 Other specified disorders of bladder; Z85.51 Personal history of malignant neoplasm of bladder; Z85.46 Personal history of malignant neoplasm of prostate; Z87.442 Personal history of urinary calculi; Z82.49 Family history of ischemic heart disease and other diseases of the circulatory system; Z83.3 Family history of diabetes mellitus; Z80.9 Family history of malignant neoplasm, unspecified; Z87.891 Personal history of nicotine dependence; Z84.2 Family history of other diseases of the genitourinary system; Z79.01 Long term (current) use of anticoagulants
CPT/HCPCS: 36415; 80048; 85014; 85018; 85610; 94760; A9270-GY; C1776; J0690; J1100; J1170; J1644; J2250; J2704; J3010

== ENCOUNTER 2021-03-25 07:39 | Observation (INO) ==
[2021-03-25 08:46] LABS: ABS Eosinophils 0.1 10^3/ul (0-0.6); ABS Lymphocytes 0.7 10^3/ul (1.0-4.8); ABS Monocytes 0.5 10^3/ul (0-0.8); ABS Neutrophils 5.8 10^3/ul (1.5-7.7); Hematocrit 36 % (42-52); Lymphocyte % 9.3 %; Mean Corpuscular HGB Conc 33 g/dL (31-36); Mean Corpuscular Hemoglobin 27 pg (27-31); Mean Corpuscular Volume 82 fL (80-94); Mean Platelet Volume 6.9 fL (7.4-10.4); Platelet Count 244 10^3/uL (150-450); Red Blood Count 4.37 10^6 /uL (4.18-5.48); Red Cell Distribution Width 16 % (10-15); White Blood Count 7.1 10^3/uL (3.5-10.8)
[2021-03-25 08:51] LABS: INR 1.04 (0.86-1.15)
[2021-03-25] MEDS ORDERED: PEG 3000 GI LAVAGE 1 GALLON PO ONE ×2 (09:01→18:50)
[2021-03-25 09:03] LABS: Albumin 3.7 g/dL (3.2-5.2); Calcium 8.8 mg/dL (8.6-10.3); Globulin 3.6 g/dL (2-4); Potassium 3.9 mmol/L (3.5-5.0); Total Bilirubin 0.5 mg/dL (0.2-1.0); Total Protein 7.3 g/dL (6.4-8.9); eGFR CKD-EPI 61.7 (>60)
[2021-03-25] MEDS ORDERED: Dextrose 50% Syringe 50 ml 25 GM/50 ML SYRINGE IV PUSH PRN (10:14)
[2021-03-25] MEDS ORDERED: ATENOLOL CHLORTHALIDONE PO SCH (10:15)
[2021-03-25 16:51] LABS: Hematocrit 34 % (42-52); Hemoglobin 11.3 g/dL (14.0-18.0)
[2021-03-25] MEDS ORDERED: Simvastatin 40 mg TAB (NF) PO SCH (18:00)
[2021-03-26 05:40] LABS: ABS Eosinophils 0.2 10^3/ul (0-0.6); ABS Lymphocytes 0.9 10^3/ul (1.0-4.8); ABS Monocytes 0.6 10^3/ul (0-0.8); ABS Neutrophils 4.4 10^3/ul (1.5-7.7); Eosinophil % 3.2 %; Hematocrit 31 % (42-52); Hemoglobin 10.5 g/dL (14.0-18.0); Lymphocyte % 14.1 %; Mean Corpuscular HGB Conc 34 g/dL (31-36); Mean Corpuscular Hemoglobin 28 pg (27-31); Mean Corpuscular Volume 82 fL (80-94); Mean Platelet Volume 6.8 fL (7.4-10.4); Platelet Count 224 10^3/uL (150-450); Red Blood Count 3.81 10^6 /uL (4.18-5.48); Red Cell Distribution Width 16 % (10-15); White Blood Count 6.1 10^3/uL (3.5-10.8)
[2021-03-26 05:55] LABS: Calcium 8.6 mg/dL (8.6-10.3); Potassium 3.5 mmol/L (3.5-5.0); eGFR CKD-EPI 67.7 (>60)
[2021-03-26] MEDS ORDERED: Omeprazole 20 mg CAP (NF) PO SCH (09:00)
[2021-03-26] MEDS ORDERED: fentaNYL 100 mcg/2 ml 50 MCG/ML VIAL ONE (14:03)
[2021-03-26] MEDS ORDERED: Midazolam 10 mg/10 ml VIAL 1 mg/ml 10 ml VIAL (10 mg) ONE (14:03)
[2021-03-27 05:48] LABS: ABS Eosinophils 0.2 10^3/ul (0-0.6); ABS Lymphocytes 0.7 10^3/ul (1.0-4.8); ABS Monocytes 0.6 10^3/ul (0-0.8); ABS Neutrophils 4.4 10^3/ul (1.5-7.7); Eosinophil % 3.4 %; Hematocrit 33 % (42-52); Lymphocyte % 11.3 %; Mean Corpuscular HGB Conc 33 g/dL (31-36); Mean Corpuscular Hemoglobin 28 pg (27-31); Mean Corpuscular Volume 83 fL (80-94); Mean Platelet Volume 6.7 fL (7.4-10.4); Platelet Count 226 10^3/uL (150-450); Red Blood Count 3.97 10^6 /uL (4.18-5.48); Red Cell Distribution Width 16 % (10-15); White Blood Count 5.9 10^3/uL (3.5-10.8)
[2021-03-27 11:26] VITALS: BP 111/64
== END 2021-03-27 17:50 | disposition home or self-care (01) ==
LOC: ED 07:39 → EDHOLD 07:39 → SUATTDRO 10:11 → MED 12:44
PROVIDERS: ADMIT Internal Medicine; ATTEND Hospitalist